=== PATIENT | male | born 1970 | race Caucasian/White ===

== ENCOUNTER 2024-10-08 00:21 | Emergency (ER) | payer SELFPAY ==
[2024-10-08 00:40] LABS: HEMATOCRIT 41.5 % (40.0-54.0); HEMOGLOBIN 13.8 g/dL (14.0-18.0); MEAN CORPUSCULAR HEMOGLOBIN 32.5 pg (27.0-34.0); MEAN CORPUSCULAR HGB CONC 33.3 g/dL (33.0-35.0); MEAN CORPUSCULAR VOLUME 97.9 fL (80-100); PLATELET COUNT,PLT 220 10^3/uL (150-450); RED BLOOD CELL COUNT 4.24 10^6/uL (4.6-6.2); WHITE BLOOD CELL COUNT,WBC 8.8 10^3/uL (5.0-10.0)
[2024-10-08] MEDS: MVI, Adult with Vitamin K 10 ML, Folic Acid 1 MG, Thiamine 100 MG in Lactated Ringers 1... IV ONE (00:48)
[2024-10-08 00:50] LABS: BASOPHILS PERCENT AUTO 0.2 % (0.0-1.0); LYMPHOCYTES PERCENT AUTO 58.7 % (20.5-50.1); MONOCYTES PERCENT AUTO 8.5 % (2-8); NEUTROPHILS PERCENT AUTO 29.6 % (42.2-75.2)
[2024-10-08 00:56] LABS: ANION GAP 19.3 mEq/L (7-13); BLOOD UREA NITROGEN,BUN 13 mg/dL (7-18); CALCIUM 8.3 mg/dL (8.5-10.1); CARBON DIOXIDE,CO2 22 mmol/L (21-32); CHLORIDE,CL 102 mmol/L (98-107); CREATININE 0.96 mg/dL (0.70-1.30); EOSINOPHILS PERCENT MAN 3 % (1-3); ETHANOL BLOOD MEDICAL 220 mg/dL (0); GLUCOSE RANDOM 202 mg/dL (70-99); LYMPHOCYTES PERCENT MAN 54 % (20-50); MONOCYTES PERCENT MAN 7 % (2-8); POTASSIUM,K 3.3 mmol/L (3.5-5.1); SEG NEUTROPHILS PERCENT MAN 36 % (42-75); SODIUM,NA 140 mmol/L (136-145)
[2024-10-08 00:57] LABS: ESTIMATED GFR 95 mL/min (>=60)
[2024-10-08] MEDS: Acetaminophen 500 MG Tab PO ONE (02:18)
== END 2024-10-08 03:57 | disposition home or self-care (01) ==
LOC: DL.ED 00:21
DX: F10.10 Alcohol abuse, uncomplicated (principal); Y90.7 Blood alcohol level of 200-239 mg/100 ml
CPT/HCPCS: 36415; 70450; 72125; 80048; 80307; 85025; 96365; 99285; A9270; J3411; J7120; J3490